=== PATIENT | female | born 1995 ===

== ENCOUNTER 2017-04-29 05:22 | Emergency (ER) | payer SELFPAY ==
[~2017-04-29] VITALS: Ht 149.9 cm; Wt 64.5 kg
[2017-04-29 05:28] VITALS: Ht 149.9 cm; Wt 64.5 kg
[2017-04-29] MEDS ORDERED: AMO500 PO (05:38)
--- NOTE | 2017-04-29 05:40 | ERD ---
ER Documentation Chief Complaint Date/Time DATE: 04/29/17 TIME: 05:39 Chief Complaint right earache x 2 days HPI Patient is a 21-year-old female who has a right-sided earache for 2 days. She denies any fever. Denies any bleeding or drainage. She took ibuprofen but it did not help. Denies any cough or sore throat. No nausea vomiting or diarrhea. ROS All systems reviewed and are negative except as per history of present illness. Medications Home Meds Active Scripts Amoxicillin* (Amoxicillin*) 500 Mg Cap, 500 MG PO BID for 7 Days, CAP Prov:SHIRA LOPEZ PA-C 04/29/17 Allergies Allergies: Coded Allergies: No Known Drug Allergies (Verified Allergy, Unknown, 04/29/17) FmHx Family History: No diabetes Physical Exam Vitals Vital Signs Date Time Temp Pulse Resp B/P Pulse Ox O2 Delivery O2 Flow Rate FiO2 04/29/17 05:28 97.5 62 20 110/59 99 Physical Exam INITIAL VITAL SIGNS: Reviewed by me GENERAL: Awake, alert and oriented x 4, well appearing, nontoxic, speaking in full sentences. No acute distress HEAD: Atraumatic EYES: EOMI. PERRL. EAR: No tenderness over the mastoids bilaterally. Right tympanic membrane erythematous without any exudates in the canal, left ear within normal limits NOSE: Normal nose. THROAT: No tonilar erythema or edema. No exudates. Uvula midline. No kissing tonsils. NECK: Supple. No masses. Full range of motion. No meningismus. No midline tenderness. RESPIRATORY: Clear to auscultation bilaterally. Symmetric chest wall rise. No wheezing or rales. No accessory muscle use. CV: Regular rate and rhythm. No murmurs, rubs, or gallops. Procedures/MDM Patient presents with otitis media. Exam is otherwise normal. Patient was discharged with amoxicillin and instructions to continue to take Tylenol and Motrin as needed for pain and fever. Patient counseled regarding my diagnostic impression and care plan. Prior to discharge all questions answered. Pt agrees with treatment plan and understands strict return precautions. Pt is instructed to follow up with primary care provider within 24-48 hours. Precautionary instructions provided including instructions to return to the ER if not improving or for any worsening or changing symptoms or concerns. Departure Diagnosis: Primary Impression: Otitis media Condition: Stable Patient Instructions: Otitis Media, Abx Tx (Adult) Additional Instructions: Call your primary care doctor TOMORROW for an appointment during the next 1-2 days.See the doctor sooner or return here if your condition worsens before your appointment time. SHIRA LOPEZ PA-C Apr 29, 2017 05:40
[2017-04-29 05:50] VITALS: BP 111/59; PULSE 67; RESP 19
== END 2017-04-29 05:51 | disposition home or self-care (01) ==
LOC: FTE 05:22
DX: H66.91 Otitis media, unspecified, right ear (principal)
CPT/HCPCS: 99283